=== PATIENT | male | born 1945 | race Caucasian/White ===

== ENCOUNTER 2017-02-21 13:30 | Inpatient (IN) | payer BC, MEDICARE ==
--- NOTE | 2017-02-21 15:09 | ED PDOC ---
HPI: Abdomen Chief Complaint (Provider): Blood in stool History Per: Patient (Pt is a 71 y M with PMHx significant for CAD (s/p angioplasty in 01-30-17), Chronic Panceratitis, HLD, DM, and GERD presents to ED with 3 day history of "tarry" stools. He states that he has had 3 total well formed BM that appeared tarry and denies any BRBR in stool, pain with defecation , hx hemorroids or anal fissures N/V/C, weight loss, CP, SOB, cough, fever, chills. On ROS, he states the he has also been feeling weak for the past 2 days. He has recently began taking Brilinta since his angioplasty procedure. Denies any Nsaid use. ) History/Exam Limitations: no limitations Current Symptoms Are (Timing): Still Present Last Bowel Movement: Today Additional History Per: Patient (Daughter) <Jad Ovalles - Last Filed: 02/21/17 18:03> <Uday Drummond - Last Filed: 02/22/17 13:32> Time Seen by Provider: 02/21/17 14:07 Chief Complaint (Nursing): GI Problem Past Medical History Reviewed: Historical Data, Nursing Documentation, Vital Signs - Medical History PMH: Hyperlipidemia, Pancreatitis Denies: Diverticulitis (Denies Hemorrhoids or Anal Fissures), Gastritis - Surgical History Other surgeries: Angioplasty (01-30-17) - 4 stents placed - Family History Family History: States: No Known Family Hx Other Family History: 4 maternal aunts with breast cancer - Living Arrangements Living Arrangements: With Family - Social History Current smoker - smoking cessation education provided: No Alcohol: None Drugs: Denies <Jad Ovalles - Last Filed: 02/21/17 18:03> <Uday Drummond Y - Last Filed: 02/22/17 13:32> Vital Signs: Last Vital Signs Temp 98 F 02/22/17 12:38 Pulse 69 02/22/17 12:38 Resp 18 02/22/17 12:38 BP 115/71 02/22/17 12:38 Pulse Ox 98 02/22/17 12:38 - Home Medications Home Medications: Ambulatory Orders Medication Instructions Recorded Aspirin [Ecotrin] 81 mg PO DAILY 02/21/17 Atorvastatin [Lipitor] 20 mg PO HS 02/21/17 Cholecalciferol (Vitamin D3) 400 unit PO BID 02/21/17 [Vitamin D-400] Glimepiride [amaRYL] 4 mg PO BID 02/21/17 Multivitamin [Multi-Vitamin Daily] 1 tab PO DAILY 02/21/17 Sitagliptin Phos/Metformin HCl 1 tab PO BID 02/21/17 [Janumet 50-1,000 mg Tablet] Ticagrelor [Brilinta] 90 mg PO BID 02/21/17 - Allergies Allergies/Adverse Reactions: Allergies Allergy/AdvReac Type Severity Reaction Status Date / Time No Known Allergies Allergy Verified 02/21/17 13:36 Review of Systems ROS Statement: Except As Marked, All Systems Reviewed And Found Negative Constitutional: Positive for: Weakness. Negative for: Fever, Chills, Weight loss ENT: Positive for: Other Cardiovascular: Negative for: Chest Pain, Palpitations, Edema Respiratory: Negative for: Cough, Shortness of Breath, SOB with Exertion, Pleuritic Pain, Wheezing Gastrointestinal: Negative for: Nausea, Vomiting, Abdominal Pain, Diarrhea, Constipation, Hematochezia, Hematemesis, Rectal Pain Genitourinary Male: Negative for: Dysuria, Hematuria Skin: Positive for: Bruising Neurological: Positive for: Weakness. Negative for: Numbness, Confusion, Dizziness <Jad Ovalles - Last Filed: 02/21/17 18:03> Physical Exam - Reviewed Nursing Documentation Reviewed: Yes Vital Signs Reviewed: Yes - Physical Exam Appears: Positive for: Well, Non-toxic, No Acute Distress Head Exam: Positive for: ATRAUMATIC, NORMAL INSPECTION, NORMOCEPHALIC Skin: Positive for: Normal Color. Negative for: Diaphoresis, Pallor Eye Exam: Positive for: EOMI. Negative for: Conjunctival injection Cardiovascular/Chest: Positive for: Regular Rate, Rhythm, Murmur. Negative for : Chest Non Tender, Edema, JVD Respiratory: Positive for: Normal Breath Sounds. Negative for: Crackles, Wheezing Pulses-Dorsalis Pedis (L): 2+ Pulses-Dorsalis Pedis (R): 2+ Pulses-Radial (L): 2+ Pulses-Radial (R): 2+ Gastrointestinal/Abdominal: Positive for: Normal Exam, Bowel Sounds, Soft. Negative for: Tenderness, Organomegaly, Distended Rectal: Positive for: Rectal Tone Is:, Black Stool, Other (Tarry stools noticed in rectal vault; well formed). Negative for: Blood Streaked Stool, Hemorrhoids (2 skin tags), Mass, Tenderness Extremity: Positive for: Capillary Refill (Good). Negative for: Pedal Edema Neurologic/Psych: Positive for: Alert, Oriented <Jad Ovalles - Last Filed: 02/21/17 18:03> - Laboratory Results Result Diagrams: 02/21/17 15:00 02/21/17 15:00 - ECG O2 Sat by Pulse Oximetry: 97 <Jad Ovalles - Last Filed: 02/21/17 18:03> - Laboratory Results Result Diagrams: 02/22/17 06:15 02/22/17 06:15 <Uday Drummond - Last Filed: 02/22/17 13:32> - Progress ED Course And Treament: Pantaprazole 40mg IVP x1 IV NS bolus CBC, CMP, PT Type & Screen Stool Guaic x2 (Jad Ovalles) Medical Decision Making <Jad Ovalles - Last Filed: 02/21/17 18:03> <Uday Drummond - Last Filed: 02/22/17 13:32> Medical Decision Makin yo male with PMHx of CAD (s/p angioplasty on 01-30-17 started on Brilinta), DM, HLD, and Chronic Pancreatitis presents with a 3 day history of Melena and weakness. Plan: Hold Antiplatelet medication Start Pantaprazole Maintain hemodynamics, Monitor H/H, transfuse if needed I spoke with pt's project coordinator rn, Dr. Lau, and foxing cutting machine operator, Dr. Lerma , with regards to pt's symptoms, vitals, labs, and plan to admit. Both MD's agreed that patient met admission criteria and will evaluate pt. Cardio and GI consults place. (Jad Ovalles) MD note- pt seen and evaluated by myself along with resident. pt presented with gi bleed. on brilinta. pt is pt of dr yanez. pt here stable hgb. dr lerma made aware of pt. as well as dr lau pts project coordinator rn. iv protonix initiated in the er. dr yanez aware of pt, will admit to telemetry. pt aware of plan. (Uday Drummond) Disposition - Patient ED Disposition Is Patient to be Admitted: Yes - Disposition Disposition: Transfer of Care Disposition Time: 17:53 - Pt Status Changed To: Hospital Disposition Of: Inpatient - Admit Certification Admit to Inpatient:: After my assessment, the patient will require hospitalization for at least two midnights. This is because of the severity of symptoms shown, intensity of services needed, and/or the medical risk in this patient being treated as an outpatient. - POA Present On Arrival: None <Jad Ovalles - Last Filed: 02/21/17 18:03> - Patient ED Disposition Is Patient to be Admitted: Yes - Disposition Disposition Time: 16:45 - Pt Status Changed To: Hospital Disposition Of: Inpatient - Admit Certification Admit to Inpatient:: After my assessment, the patient will require hospitalization for at least two midnights. This is because of the severity of symptoms shown, intensity of services needed, and/or the medical risk in this patient being treated as an outpatient. <Uday Drummond - Last Filed: 02/22/17 13:32> - Clinical Impression Clinical Impression: Gastritis, GI bleed, Melena, CAD (coronary artery disease) - Disposition Condition: STABLE
[2017-02-21 15:21] LABS: BASO % 0.5 % (0.0-2.0); EOS # 0.1 K/uL (0.0-0.7); EOS % 1.2 % (0.0-4.0); HEMATOCRIT 34.8 % (35.0-51.0); LYMPH % 21.8 % (20.0-40.0); MEAN CELL VOLUME 89.1 fl (80.0-94.0); MEAN CORPUSCULAR HEMOGLOBIN 30.2 pg (27.0-31.0); MEAN CORPUSCULAR HGB CONC 33.9 g/dL (33.0-37.0); MEAN PLATELET VOLUME 11.6 fl (7.2-11.7); MONO # 0.8 K/uL (0.0-0.8); NEUT # 6.1 K/uL (1.8-7.0); NEUT % 67.5 % (50.0-75.0); NRBC % 0.1 % (0.0-0.0); RED CELL DISTRIBUTION WIDTH 13.4 % (11.5-14.5)
[2017-02-21 15:33] LABS: ALB/GLOB RATIO 1.5 (1.0-2.1); ALKALINE PHOSPHATASE 67 U/L (38-126); ALT/SGPT 33 U/L (21-72); AST/SGOT 32 U/L (17-59); BILIRUBIN,TOTAL 0.4 mg/dl (0.2-1.3); BLOOD UREA NITROGEN 11 mg/dl (9-20); CALCIUM 9.6 mg/dL (8.4-10.2); CARBON DIOXIDE 23 mmol/L (22-30); CHLORIDE 98 mmol/L (98-107); GFR AFRICAN-AMERICAN > 60; GLUCOSE,RANDOM 196 mg/dL (75-110); POTASSIUM 4.2 MMOL/L (3.6-5.0); SODIUM 136 mmol/l (132-148); TOTAL PROTEIN 7.4 G/DL (6.3-8.2)
--- NOTE | 2017-02-21 16:39 | RAD ---
HISTORY: go bleed COMPARISON: No prior. FINDINGS: LUNGS: The lungs are well inflated. PLEURA: There is blunting of the left costophrenic angle. No significant right pleural effusion identified, no pneumothorax apparent. CARDIOVASCULAR: Normal. OSSEOUS STRUCTURES: No significant abnormalities. VISUALIZED UPPER ABDOMEN: Normal. OTHER FINDINGS: None. IMPRESSION: No active pulmonary disease. Blunting of the left costophrenic angle may be related to pleural thickening or small pleural effusion.
--- NOTE | 2017-02-21 17:32 | CP.PCM.CON ---
<Phil White - Last Filed: 02/21/17 17:51> History of Present Illness - History of Present Illness History of Present Illness: Initial GI Consult Note Raghav Estrada is a 71M w/ hx of DM, HL, CAD s/p CHELSEA 2 weeks ago on Brillinta, and hx of partial pancreatic resection? who presented to the ER after being referred by her PCP for melena. Pt states that the onet of melena was 3 days ago. He reports daily melonic BM since. Denies any BRBPR, hematemesis, or coffee ground emesis. He denies any lightheadedness or palpitations. He reports that he has been taking all his home meds as prescribed including brillenta and ASA for his recent CHELSEA stent. His last dose of ASA and Brillenta was this morning. Upon arrival his hgb was ~ 11.5 (baseline unknown) and he has been hemodynamically stable upon arrival and since admission. Denies any abd pain, nausea, vomiting or diarrhea. Pt was recently seen in our offin early Jan for complaints of abd pain and GERD like symptoms. An Abd CT was obtained but it revealed an enlarged pancratic head and neck with pancreatic duct dilatation (which may be compensation), but no def mass was identified (as per report). In the interim, pt had a + stress test which resulted in recent CHELSEA stent placement in the LAD (reported x4 small stents as per pt due to anatomy). PMHx: HL, CAD s/p CHELSEA, DM PSHx: lap david, partial pancreatic resection? Social hx: denied any etoh, smoking, or illicit drug use Family hx: Breast Ca in multiple sisters 12-point ROS conducted, neg other than whats states above Past Patient History - Past Social History Alcohol: None Drugs: Denies - CARDIAC Hx Cardiac Disorders: Yes Other/Comment: +CARDIAC STENT - ENDOCRINE/METABOLIC Hx Endocrine Disorders: Yes Hx Diabetes Mellitus Type 2: Yes - GASTROINTESTINAL Hx Diverticulitis: No (Denies Hemorrhoids or Anal Fissures) Hx Gastritis: No Hx Pancreatitis: Yes - PSYCHIATRIC Hx Substance Use: No - SURGICAL HISTORY Hx Surgeries: Yes Other/Comment: "PANCREATIC SURGERY" - ANESTHESIA Hx Anesthesia: Yes Hx Anesthesia Reactions: No Meds Allergies/Adverse Reactions: Allergies Allergy/AdvReac Type Severity Reaction Status Date / Time No Known Allergies Allergy Verified 02/21/17 13:36 Physical Exam - Constitutional Appears: Well, Non-toxic, No Acute Distress - Head Exam Head Exam: ATRAUMATIC, NORMOCEPHALIC - Eye Exam Eye Exam: Normal appearance - ENT Exam ENT Exam: Mucous Membranes Moist, Normal Exam - Respiratory Exam Respiratory Exam: Clear to Auscultation Bilateral, NORMAL BREATHING PATTERN. absent: Rales, Rhonchi, Wheezes - Cardiovascular Exam Cardiovascular Exam: REGULAR RHYTHM, +S1, +S2, Systolic Murmur - GI/Abdominal Exam GI & Abdominal Exam: Normal Bowel Sounds, Soft. absent: Guarding, Organomegaly , Rebound, Rigid - Rectal Exam Additional comments: scant stool on rectal vault, specaled black matter - Extremities Exam Extremities exam: Positive for: normal inspection. Negative for: joint swelling , pedal edema - Neurological Exam Neurological exam: Alert, Oriented x3 - Psychiatric Exam Psychiatric exam: Normal Affect, Normal Mood - Skin Skin Exam: Dry, Intact, Normal Color, Warm Results - Vital Signs Recent Vital Signs: Last Vital Signs Temp 96.0 F L 02/21/17 13:36 Pulse 105 H 02/21/17 13:36 Resp 16 02/21/17 13:36 BP 127/84 02/21/17 13:36 Pulse Ox 97 02/21/17 16:29 - Labs Result Diagrams: 02/21/17 15:00 02/21/17 15:00 Assessment & Plan - Assessment and Plan (Free Text) Assessment: Raghav Estrada is a 71M w/ hx of CAD s/p recent [place] stent, HL, DM who presents with melena. etiology is likely upper based on presentation DDx: PUD, AVM, r/o malig 1. Melena, likely upper GI 2. CAD s/p recent CHELSEA stent x2, on ASA and brillenta 3. Hx of pancreatitis and partial pancreatic resection Plan: -clears for now - NPO after midnight - Will give an additional 80mg IV bolus, then protonix drip - Will likely do EGD on the AM - type and screen blood - monitor hgb q 12 hrs - ensure two large bore IVs are in place - will persue other GI w/u including pancreatic head enlargement as oupt -Keep hgb above 8 D/W Dr. Amaya and agrees with the above <Adeline Amaya MD - Last Filed: 02/21/17 21:11> Meds - Medications Medications: Current Medications Pantoprazole Sodium 40 mg/ (Sodium Chloride) 100 mls @ 20 mls/hr IVPB Q5H FEDERICO PRN Reason: 8 MG/HR Last Admin: 02/21/17 18:53 Dose: 20 mls/hr Results - Vital Signs Recent Vital Signs: Last Vital Signs Temp 98.2 F 02/21/17 20:42 Pulse 79 02/21/17 20:42 Resp 16 02/21/17 20:42 BP 112/61 02/21/17 20:42 Pulse Ox 100 02/21/17 20:15 - Labs Result Diagrams: 02/21/17 15:00 02/21/17 15:00 Labs: Laboratory Results - last 24 hr 02/21/17 16:15 Stool Occult Blood Negative Attending/Attestation - Attestation I have personally seen and examined this patient.: Yes I have fully participated in the care of the patient.: Yes I have reviewed all pertinent clinical information: Yes Notes (Text): 02/21/17 21:06 This is a 71 yr old Spanish M w/ hx of CAD s/p recent DE stent on dual anti platelet, Hyperlipidemia, DM who presents with melena. Seen two weeks ago in my office for dyspepsia like symptoms. Had stress today s/p cardiac cath and 4 cardiac stents placed. Now presenting with three day history of melena likely UGIB. Will start PPI gtt with bolus and plan to scope in am. Hold brilinta for now. Monitor Hb q [address] abdomen done last month also shows lung lesion which is a concern for malignancy mandating lung biopsy. Discussed with Dr Mahoney
[2017-02-21] MEDS: Pantoprazole 40 MG in Sodium Chloride 0.9% 100 ML IVPB SCH ×2 (18:53→23:36)
--- NOTE | 2017-02-21 18:54 | CP.PCM.CON ---
History of Present Illness - History of Present Illness History of Present Illness: I was asked to see patient by Dr. Mahoney. Patient is a 71 year old male with a PMH CAD s/p PCI LAD about one month ago with CHELSEA who presents with melena. The patient had previous unstable angina, and nuclear perfusion stress tet revealed reversible anterior ischemia. Cardiac catheterization revealed 2 sequential high grade stenosis of the LAD whixh were subsequently stented. He was placed on an antiplatelet regimen of ASA and Brilinta. The patient has done well and has been angina free, however recently develop-ed melena. He was admitted for further workup. He is scheduled for endoscopy. Review of Systems - Constitutional Constitutional: absent: As Per HPI, Anorexia, Chills, Daytime Sleepiness, Excessive Sweating, Fatigue, Fever, Frequent Falls, Headache, Increased Appetite , Lethargy, Malaise, Night Sweats, Snoring, Sleep Apnea, Weight Gain, Weight Loss, Weakness, Other - EENT Eyes: absent: As Per HPI, Blind Spots, Blurred Vision, Change in Vision, Decreased Night Vision, Diplopia, Discharge, Dry Eye, Exophthalmos, Floaters, Irritation, Itchy Eyes, Loss of Peripheral Vision, Pain, Photophobia, Requires Corrective Lenses, Sees Flashes, Spots in Vision, Tunnel Vision, Other Visual Disturbances, Loss of Vision, Other Ears: absent: As Per HPI, Decreased Hearing, Ear Discharge, Ear Pain, Tinnitus, Abnormal Hearing, Disequilibrium, Dizziness, Other Nose/Mouth/Throat: absent: As Per HPI, Epistaxis, Nasal Congestion, Nasal Discharge, Nasal Obstruction, Nasal Trauma, Nose Pain, Post Nasal Drip, Sinus Pain, Sinus Pressure, Bleeding Gums, Change in Voice, Dental Pain, Dry Mouth, Dysphagia, Halitosis, Hoarsness, Lip Swelling, Mouth Lesions, Mouth Pain, Odynophagia, Sore Throat, Throat Swelling, Tongue Swelling, Facial Pain, Neck Pain, Neck Mass, Other - Cardiovascular Cardiovascular: absent: As Per HPI, Acrocyanosis, Chest Pain, Chest Pain at Rest , Chest Pain with Activity, Claudication, Diaphoresis, Dyspnea, Dyspnea on Exertion, Edema, Irregular Heart Rhythm, Pain Radiating to Arm/Neck/Jaw, Leg Edema, Leg Ulcers, Lightheadedness, Orthopnea, Palpitations, Paroxysmal Nocturnal Dyspnea, Pedal Edema, Radiating Pain, Rapid Heart Rate, Slow Heart Rate, Syncope, Other - Respiratory Respiratory: absent: As Per HPI, Cough, Dyspnea, Hemoptysis, Dyspnea on Exertion , Wheezing, Snoring, Stridor, Pain on Inspiration, Chest Congestion, Excessive Mucous Production, Change in Mucous Color, Pain with Coughing, Other - Gastrointestinal Gastrointestinal: Melena - Genitourinary Genitourinary: absent: As Per HPI, Change in Urinary Stream, Difficulty Urinating, Dysuria, Flank Pain, Hematuria, Pyuria, Nocturia, Urinary Incontinence, Urinary Frequency, Urinary Hesitance, Urinary Urgency, Voiding Freq/Small Amts, Freq UTI, Hx Renal/Bladder Calculi, Hx /Renal Surgery, Bladder Distension, Other - Musculoskeletal Musculoskeletal: absent: As Per HPI, Abnormal Gait, Arthralgias, Atrophy, Back Pain, Deformity, Joint Swelling, Limited Range of Motion, Loss of Height, Muscle Cramps, Muscle Weakness, Myalgias, Neck Pain, Numbness, Radiating Pain into Limb, Stiffness, Tingling, Other - Integumentary Integumentary: absent: As Per HPI, Acne, Alopecia, Bleeding Lesions, Change in Hair, Change in Nails, Change in Pigmentation, Changing Lesions, Dry Skin, Erythema, Furuncle, Hirsutism, Lesions, New Lesions, Non-Healing Lesions, Photosensitivity, Pruritus, Rash, Skin Pain, Skin Ulcer, Sores, Striae, Swelling , Unusual Bruising, Wounds, Jaundice, Other - Neurological Neurological: absent: As Per HPI, Abnormal Gait, Abnormal Hearing, Abnormal Movements, Abnormal Speech, Behavioral Changes, Burning Sensations, Confusion, Convulsions, Disequilibrium, Dizziness, Numbness, Focal Weakness, Frequent Falls , Headaches, Lack of Coordination, Loss of Vision, Memory Loss, Paresthesias, Radicular Pain, Restless Legs, Sensory Deficit, Syncope, Tingling, Tremor, Vertigo, Weakness, Other Visual Disturbances, Other - Psychiatric Psychiatric: absent: As Per HPI, Abnormal Sleep Pattern, Anhedonia, Anxiety, Auditory Hallucinations, Behavioral Changes, Change in Appetite, Change in Libido, Confusion, Depression, Difficulty Concentrating, Hallucinations, Homicidal Ideation, Hopelessness, Irritability, Memory Loss, Mood Swings, Panic Attacks, Paranoia, Suicidal Ideation, Visual Hallucinations, Tactile Hallucinations, Other - Endocrine Endocrine: absent: As Per HPI, Change in Body Appearance, Change in Libido, Cold Intolorance, Deepening of Voice, Excessive Sweating, Fatigue, Flushing, Heat Intolorance, Increase in Ring/Shoe/Hat Size, Palpitations, Polydipsia, Polyphagia, Polyuria, Other - Hematologic/Lymphatic Hematologic: absent: As Per HPI, Easy Bleeding, Easy Bruising, Lymphadenopathy, Other Past Patient History - Past Social History Alcohol: None Drugs: Denies - CARDIAC Hx Cardiac Disorders: Yes Other/Comment: +CARDIAC STENT - ENDOCRINE/METABOLIC Hx Endocrine Disorders: Yes Hx Diabetes Mellitus Type 2: Yes - GASTROINTESTINAL Hx Diverticulitis: No (Denies Hemorrhoids or Anal Fissures) Hx Gastritis: No Hx Pancreatitis: Yes - PSYCHIATRIC Hx Substance Use: No - SURGICAL HISTORY Hx Surgeries: Yes Other/Comment: "PANCREATIC SURGERY" - ANESTHESIA Hx Anesthesia: Yes Hx Anesthesia Reactions: No Meds Allergies/Adverse Reactions: Allergies Allergy/AdvReac Type Severity Reaction Status Date / Time No Known Allergies Allergy Verified 02/21/17 13:36 - Medications Medications: Current Medications Pantoprazole Sodium 40 mg/ (Sodium Chloride) 100 mls @ 20 mls/hr IVPB Q5H [place]ER[place] PRN Reason: 8 MG/HR Physical Exam - Constitutional Appears: Non-toxic - Head Exam Head Exam: NORMAL INSPECTION - Eye Exam Eye Exam: Normal appearance - ENT Exam ENT Exam: Mucous Membranes Moist - Neck Exam Neck exam: Positive for: Normal Inspection - Respiratory Exam Respiratory Exam: NORMAL BREATHING PATTERN - Cardiovascular Exam Cardiovascular Exam: REGULAR RHYTHM - GI/Abdominal Exam GI & Abdominal Exam: Normal Bowel Sounds - Rectal Exam Rectal Exam: Deferred - Extremities Exam Extremities exam: Positive for: normal inspection - Back Exam Back exam: NORMAL INSPECTION - Neurological Exam Neurological exam: Alert, Oriented x3 - Psychiatric Exam Psychiatric exam: Normal Affect - Skin Skin Exam: Normal Color Results - Vital Signs Recent Vital Signs: Last Vital Signs Temp 96.0 F L 02/21/17 13:36 Pulse 105 H 02/21/17 13:36 Resp 16 02/21/17 13:36 BP 127/84 02/21/17 13:36 Pulse Ox 97 02/21/17 18:04 - Labs Result Diagrams: 02/22/17 06:15 02/22/17 06:15 Labs: Laboratory Results - last 24 hr 02/21/17 16:15 Stool Occult Blood Negative - EKG Data EKG Interpreted by: Myself EKG shows normal: Sinus rhythm Assessment & Plan (1) Melena Assessment and Plan: will need endoscopy. This is a low risk procedure. There is no cardiovascular contraindication to the planned procedure. Status: Acute (2) CAD (coronary artery disease) Assessment and Plan: s/p PCI with CHELSEA stent palcement. was maintained on Brilinta and ASA. ideally would like to continue as patient is at increased risk of stent thrombosis. If needs to be held for prolonged period due to procedures, will consider IV Integrelin. Status: Acute (3) HTN (hypertension) Assessment and Plan: controlled Status: Acute (4) Hypercholesterolemia Assessment and Plan: statin therapy Status: Acute
[2017-02-21] MEDS ORDERED: Patient's Own Med (Sitagliptin Phos/Metformin Hcl [Janumet 50-1,000 Mg Tablet] 1 TAB) PO SCH (22:00)
[2017-02-22] MEDS: GlipiZIDE 10 mg SR Tab PO SCH ×3 (02:09→17:35)
[2017-02-22] MEDS: Pantoprazole 40 MG in Sodium Chloride 0.9% 100 ML IVPB SCH ×2 (05:59→09:12)
[2017-02-22 06:56] LABS: HEMATOCRIT 33.6 % (35.0-51.0); MEAN CELL VOLUME 89.1 fl (80.0-94.0); MEAN CORPUSCULAR HGB CONC 33.7 g/dL (33.0-37.0); RED CELL DISTRIBUTION WIDTH 13.6 % (11.5-14.5); WHITE BLOOD COUNT 9.5 K/uL (4.8-10.8)
[2017-02-22] MEDS: Insulin Regular 100 units/ml SC SCH ×2 (07:00→12:20)
[2017-02-22 07:09] LABS: ALB/GLOB RATIO 1.4 (1.0-2.1); ALKALINE PHOSPHATASE 66 U/L (38-126); ALT/SGPT 39 U/L (21-72); AST/SGOT 30 U/L (17-59); BILIRUBIN,TOTAL 0.4 mg/dl (0.2-1.3); BLOOD UREA NITROGEN 11 mg/dl (9-20); CALCIUM 9.2 mg/dL (8.4-10.2); CARBON DIOXIDE 25 mmol/L (22-30); CHLORIDE 104 mmol/L (98-107); GFR AFRICAN-AMERICAN > 60; GLUCOSE,RANDOM 140 mg/dL (75-110); SODIUM 137 mmol/l (132-148); TOTAL PROTEIN 6.7 G/DL (6.3-8.2)
[2017-02-22] MEDS: Multivitamin With Minerals Tab PO SCH (09:00)
[2017-02-22] MEDS: Cholecalciferol 400 Intl Units Tab PO SCH ×2 (09:00→17:37)
[2017-02-22] MEDS ORDERED: Patient's Own Med (Multivitamin [Multi-Vitamin Daily] 1 TAB) PO SCH (09:00)
--- NOTE | 2017-02-22 09:11 | CP.PCM.HP ---
History of Present Illness - History of Present Illness History of Present Illness: Patient is a 71 year old male with a PMH of DM, CAD s/p PCI LAD about one month ago with CHELSEA who presents with melena. Patient has been on ASA and Brilinta. Patient previously seen by GI due to complaints of abdominal pain, had CT of abdomen/pelvis that revealed the body and tail of pancreas are completely fatty replaced with compensatory prominence of the head and neck pancreatic parenchyma with dilation of pancreatic duct. No longer having dark stools. No complaints today s/p EGD. PMHx: CAD s/p CHELSEA, DM, HLD Medications: reviewed Allergies: NKDA social hx: denies smoking, etoh and illicit drug use. Surgical hx: cardiac cath w/ stent placement Present on Admission - Present on Admission Any Indicators Present on Admission: No Past Patient History - Past Medical History & Family History Past Medical History?: Yes - Past Social History Alcohol: None Drugs: Denies - CARDIAC Hx Cardiac Disorders: Yes Other/Comment: +CARDIAC STENT - PULMONARY Hx Respiratory Disorders: No - NEUROLOGICAL Hx Neurological Disorder: No - HEENT Hx HEENT Problems: No - RENAL Hx Chronic Kidney Disease: No - ENDOCRINE/METABOLIC Hx Endocrine Disorders: Yes Hx Diabetes Mellitus Type 2: Yes - HEMATOLOGICAL/ONCOLOGICAL Hx Blood Disorders: No Hx AIDS: No Hx Human Immunodeficiency Virus (HIV): No - INTEGUMENTARY Hx Dermatological Problems: No - MUSCULOSKELETAL/RHEUMATOLOGICAL Hx Musculoskeletal Disorders: No Hx Falls: No - GASTROINTESTINAL Hx Diverticulitis: No (Denies Hemorrhoids or Anal Fissures) Hx Gastritis: No Hx Pancreatitis: Yes - GENITOURINARY/GYNECOLOGICAL Hx Genitourinary Disorders: No - PSYCHIATRIC Hx Substance Use: No - SURGICAL HISTORY Hx Surgeries: Yes Other/Comment: "PANCREATIC SURGERY" - ANESTHESIA Hx Anesthesia: Yes Hx Anesthesia Reactions: No Meds Allergies/Adverse Reactions: Allergies Allergy/AdvReac Type Severity Reaction Status Date / Time No Known Allergies Allergy Verified 02/21/17 13:36 Physical Exam - Constitutional Appears: No Acute Distress - Head Exam Head Exam: ATRAUMATIC, NORMAL INSPECTION, NORMOCEPHALIC - Eye Exam Eye Exam: EOMI, Normal appearance, PERRL - ENT Exam ENT Exam: Mucous Membranes Moist, Normal Exam - Respiratory Exam Respiratory Exam: Clear to Auscultation Bilateral, NORMAL BREATHING PATTERN - Cardiovascular Exam Cardiovascular Exam: REGULAR RHYTHM - GI/Abdominal Exam GI & Abdominal Exam: Normal Bowel Sounds, Soft. absent: Tenderness - Neurological Exam Neurological exam: Alert, CN II-XII Intact, Normal Gait, Oriented x3 - Psychiatric Exam Psychiatric exam: Normal Affect, Normal Mood - Skin Skin Exam: Dry, Intact, Normal Color, Warm Results - Vital Signs Recent Vital Signs: Last Vital Signs Temp 97.8 F 02/22/17 08:00 Pulse 75 02/22/17 08:00 Resp 20 02/22/17 08:00 BP 110/60 02/22/17 08:00 Pulse Ox 96 02/22/17 08:00 - Labs Result Diagrams: 02/22/17 06:15 02/22/17 06:15 Labs: Laboratory Results - last 24 hr 02/21/17 02/21/17 02/22/17 16:15 22:10 05:18 WBC RBC Hgb Hct MCV MCH MCHC RDW Plt Count Sodium Potassium Chloride Carbon Dioxide Anion Gap BUN Creatinine Est GFR ( Amer) Est GFR (Non-Af Amer) POC Glucose (mg/dL) 84 136 H Random Glucose Calcium Total Bilirubin AST ALT Alkaline Phosphatase Total Protein Albumin Globulin Albumin/Globulin Ratio Stool Occult Blood Negative 02/22/17 02/22/17 06:15 06:15 WBC 9.5 RBC 3.78 L Hgb 11.4 L Hct 33.6 L MCV 89.1 MCH 30.0 MCHC 33.7 RDW 13.6 Plt Count 181 Sodium 137 Potassium 4.0 Chloride 104 Carbon Dioxide 25 Anion Gap 13 BUN 11 Creatinine 0.7 L Est GFR ( Amer) > 60 Est GFR (Non-Af Amer) > 60 POC Glucose (mg/dL) Random Glucose 140 H Calcium 9.2 Total Bilirubin 0.4 AST 30 ALT 39 Alkaline Phosphatase 66 Total Protein 6.7 Albumin 3.9 Globulin 2.8 Albumin/Globulin Ratio 1.4 Stool Occult Blood Assessment & Plan - Assessment and Plan (Free Text) Assessment: 71 year old male admitted for melena s/p upper endoscopy found to have erosions of esophagus and greater curvature of stomach. Suspicious for Barretts esophagus. Anemia is likely 2' to acute blood loss. FOBT negative. Patient will need biopsy of lung nodule, however he is on ASA/Brilinta. Patient is hemodynamically stable. Consults appreciated: Cardio: Dr. Lau, GI: Dr. Amaya. # Melena # Anemia # Lung nodule # CAD # NIIDM # DVT prophylaxis P: -Protonix 40mg PO BID -Patient needs CT guided lung lung biopsy, on ASA/Brilinta for recent placement of CHELSEA -Will need to hold brilinta and start integrilin for potential bx. Will d/w Dr. Lau -Will coordinate with GI and IR for biopsies. -Glucose control with ISS and home medications. -scds for dvt prophylaxis Case d/w Dr. Mahoney
[2017-02-22] MEDS ORDERED: Lactated Ringer's 500 ML IV ONE (09:14)
[2017-02-22] MEDS ORDERED: EPINEPHrine 1 mg/ml (1:1000) Inj ONE (09:40)
[2017-02-22] MEDS ORDERED: Midazolam 2 MG/2 ML VIAL ONE (09:42)
[2017-02-22] MEDS ORDERED: Propofol 10 mg/ml Inj (20 ML) ONE (09:42)
--- NOTE | 2017-02-22 12:47 | CP.PCM.PCO ---
Assessment & Plan - Assessment and Plan (Free Text) Assessment: pt. scheduled for CT guided lung bx in am 12;30 with ok to held asa/ brillanta today as per
[2017-02-22] MEDS: Insulin Lispro (humaLOG) 100 Units/ml Inj SC SCH ×2 (17:20→22:14)
[2017-02-22] MEDS: Pantoprazole 40 mg EC Tab PO SCH (17:44)
[2017-02-23 06:46] LABS: HEMATOCRIT 34.2 % (35.0-51.0); MEAN CELL VOLUME 89.8 fl (80.0-94.0); MEAN CORPUSCULAR HEMOGLOBIN 30.2 pg (27.0-31.0); MEAN CORPUSCULAR HGB CONC 33.6 g/dL (33.0-37.0); RED CELL DISTRIBUTION WIDTH 13.5 % (11.5-14.5); WHITE BLOOD COUNT 10.6 K/uL (4.8-10.8)
[2017-02-23 06:55] LABS: ALB/GLOB RATIO 1.4 (1.0-2.1); ALKALINE PHOSPHATASE 65 U/L (38-126); ALT/SGPT 33 U/L (21-72); AST/SGOT 23 U/L (17-59); BILIRUBIN,TOTAL 0.3 mg/dl (0.2-1.3); BLOOD UREA NITROGEN 14 mg/dl (9-20); CALCIUM 8.9 mg/dL (8.4-10.2); CARBON DIOXIDE 26 mmol/L (22-30); CHLORIDE 100 mmol/L (98-107); GFR AFRICAN-AMERICAN > 60; GLUCOSE,RANDOM 176 mg/dL (75-110); POTASSIUM 4.1 MMOL/L (3.6-5.0); SODIUM 136 mmol/l (132-148); TOTAL PROTEIN 6.6 G/DL (6.3-8.2)
--- NOTE | 2017-02-23 08:21 | CP.PCM.PN ---
Addendum entered and electronically signed by Phil White DO 02/23/17 10:18: will also do a colonoscopy on sunday with EGD to rule out lower source of bleeding -start golytyl; on sunday -start clears on sunday -NPO after midnigh on sunday Original Note: <Phil White - Last Filed: 02/23/17 08:23> Subjective - Date & Time of Evaluation Date of Evaluation: 02/23/17 Time of Evaluation: 07:00 - Subjective Subjective: PGY4 GI Follow-up Pt seen and examined bedside No new complaints For CT-guided lung biopsy today Denies any Abd pain, nausea, and vomiting Denies any additional melena, but states that his BM yesterday was dark toerated diet yesterday NPO today ROS: 10 point ROS conducted, neg other than whats stated above Objective - Vital Signs/Intake and Output Vital Signs (last 24 hours): Temp Pulse Resp BP Pulse Ox 98.2 F 77 20 119/74 98 02/23/17 05:32 02/23/17 05:32 02/23/17 05:32 02/23/17 05:32 02/23/17 05:32 - Medications Medications: Current Medications Aspirin (Ecotrin) 81 mg PO DAILY [facility] Last Admin: 02/22/17 09:00 Dose: Not Given Atorvastatin Calcium (Lipitor) 20 mg PO HS [facility] Last Admin: 02/22/17 21:22 Dose: 20 mg Glipizide (Glucotrol Xl) 10 mg PO BRKDIN [facility] Last Admin: 02/22/17 17:35 Dose: 10 mg Insulin Human Lispro (Humalog) 0 units SC [facility] PRN Reason: Protocol Last Admin: 02/22/17 22:14 Dose: Not Given Metformin HCl (Glucophage) 1,000 mg PO BID [facility] Last Admin: 02/22/17 17:36 Dose: 1,000 mg Multivitamins/Minerals (Therapeutic-M Tab) 1 tab PO DAILY [facility] Last Admin: 02/22/17 09:00 Dose: Not Given Pantoprazole Sodium (Protonix Ec Tab) 40 mg PO BID [facility] Last Admin: 02/22/17 17:44 Dose: 40 mg Sitagliptin Phosphate (Januvia) 100 mg PO DAILY [facility] Last Admin: 02/22/17 13:39 Dose: 100 mg Ticagrelor (Brilinta) 90 mg PO BID [facility] Last Admin: 02/22/17 09:00 Dose: Not Given Vitamin D (Vitamin D 400 Intl Units Tab) 400 intlu PO BID [facility] Last Admin: 02/22/17 17:37 Dose: 400 intlu - Labs Labs: 02/23/17 05:50 02/23/17 05:50 PT 12.8 Seconds (9.8-13.1) 02/21/17 15:00 INR 1.2 (0.9-1.2) 02/21/17 15:00 - Constitutional Appears: Non-toxic, No Acute Distress - Head Exam Head Exam: ATRAUMATIC, NORMOCEPHALIC - Eye Exam Eye Exam: Normal appearance - ENT Exam ENT Exam: Mucous Membranes Moist, Normal Exam - Neck Exam Neck Exam: Normal Inspection - Cardiovascular Exam Cardiovascular Exam: REGULAR RHYTHM, +S1, +S2 - GI/Abdominal Exam GI & Abdominal Exam: Soft, Normal Bowel Sounds. absent: Firm, Rigid, Tenderness - Neurological Exam Neurological Exam: Alert, Awake, Oriented x3 - Psychiatric Exam Psychiatric exam: Normal Affect, Normal Mood - Skin Skin Exam: Dry, Intact, Normal Color, Warm Assessment and Plan - Assessment and Plan (Free Text) Assessment: Raghav Estrada is a 71M w/ hx of CAD s/p recent DE stent, HL, DM who presents with melena. etiology is likely upper from esophageal and gastric ulcer, but cannot rule out distal site DDx: PUD, AVM, r/o malig 1. Melena, resolved 2. Esophageal and gastric ulcer 3. Suspicious for barretts esophagus 3. CAD s/p recent CHELSEA stent x2, on ASA, currently on integrillin 4. Hx of pancreatitis and partial pancreatic resection Plan: -continue PPI -Keep hgb above 8 - If pt is here till sunday will do another EGD for biopsies - Agree with integrillin - okay to continue ASA - NPO after midnight on Sunday will D/W Dr. Amaya <Adeline Amaya MD - Last Filed: 02/23/17 10:32> Objective - Vital Signs/Intake and Output Vital Signs (last 24 hours): Temp Pulse Resp BP Pulse Ox 98.1 F 80 18 112/69 96 02/23/17 09:08 02/23/17 09:08 02/23/17 09:08 02/23/17 09:08 02/23/17 09:08 - Medications Medications: Current Medications Aspirin (Ecotrin) 81 mg PO DAILY [facility] Last Admin: 02/22/17 09:00 Dose: Not Given Atorvastatin Calcium (Lipitor) 20 mg PO HS [facility] Last Admin: 02/22/17 21:22 Dose: 20 mg Glipizide (Glucotrol Xl) 10 mg PO BRKDIN [facility] Last Admin: 02/23/17 09:19 Dose: Not Given Insulin Human Lispro (Humalog) 0 units SC [facility] PRN Reason: Protocol Last Admin: 02/23/17 09:19 Dose: Not Given Metformin HCl (Glucophage) 1,000 mg PO BID [facility] Last Admin: 02/23/17 09:18 Dose: Not Given Multivitamins/Minerals (Therapeutic-M Tab) 1 tab PO DAILY [facility] Last Admin: 02/23/17 09:21 Dose: Not Given Pantoprazole Sodium (Protonix Ec Tab) 40 mg PO BID [facility] Last Admin: 02/23/17 09:21 Dose: Not Given Polyethylene Glycol/Electrolytes (Golytely) 4,000 ml PO ONCE ONE Stop: 02/25/17 12:01 Sitagliptin Phosphate (Januvia) 100 mg PO DAILY [facility] Last Admin: 02/23/17 09:20 Dose: Not Given Ticagrelor (Brilinta) 90 mg PO BID [facility] Last Admin: 02/22/17 09:00 Dose: Not Given Vitamin D (Vitamin D 400 Intl Units Tab) 400 intlu PO BID [facility] Last Admin: 02/23/17 09:21 Dose: Not Given - Labs Labs: 02/23/17 05:50 02/23/17 05:50 PT 12.8 Seconds (9.8-13.1) 02/21/17 15:00 INR 1.2 (0.9-1.2) 02/21/17 15:00 Attending/Attestation - Attestation I have personally seen and examined this patient.: Yes I have fully participated in the care of the patient.: Yes I have reviewed all pertinent clinical information, including history, physical exam and plan: Yes Notes (Text): 02/23/17 10:23 Patient seen with GI fellow on rounds this am. This is a 71 yr old M w/ hx of CAD s/p recent DE stent on dual anti platelet, HL, DM who presents with melena s /p EGD showing superficial esophageal and gastric ulcers and esophageal salmon patch. Biopsy not done as patient received brillinta on day of scope. Scheduled for lung biopsy today with IR for lung lesion. If dual anti platelet being held till Sunday will do repeat EGD with biopsy and colonoscopy. Please start bowel prep on Sunday and npo past midnight. Continue PPI daily orally. Regular cardiac diet. Can continue ASA. Discussed with the team
--- NOTE | 2017-02-23 08:59 | CP.PCM.PN ---
Subjective - Date & Time of Evaluation Date of Evaluation: 02/23/17 Time of Evaluation: 08:57 - Subjective Subjective: No acute overnight events. Patient seen and examined with attending. No complaints offered. Has not had BM. NPO status maintained. Patient is scheduled for CT guided lung biopsy today. Denies any headaches, Objective - Vital Signs/Intake and Output Vital Signs (last 24 hours): Temp Pulse Resp BP Pulse Ox 98.2 F 77 20 119/74 98 02/23/17 05:32 02/23/17 05:32 02/23/17 05:32 02/23/17 05:32 02/23/17 05:32 - Medications Medications: Current Medications Aspirin (Ecotrin) 81 mg PO DAILY [facility] Last Admin: 02/22/17 09:00 Dose: Not Given Atorvastatin Calcium (Lipitor) 20 mg PO HS [facility] Last Admin: 02/22/17 21:22 Dose: 20 mg Glipizide (Glucotrol Xl) 10 mg PO BRKDIN [facility] Last Admin: 02/22/17 17:35 Dose: 10 mg Insulin Human Lispro (Humalog) 0 units SC [facility] PRN Reason: Protocol Last Admin: 02/22/17 22:14 Dose: Not Given Metformin HCl (Glucophage) 1,000 mg PO BID [facility] Last Admin: 02/22/17 17:36 Dose: 1,000 mg Multivitamins/Minerals (Therapeutic-M Tab) 1 tab PO DAILY [facility] Last Admin: 02/22/17 09:00 Dose: Not Given Pantoprazole Sodium (Protonix Ec Tab) 40 mg PO BID [facility] Last Admin: 02/22/17 17:44 Dose: 40 mg Sitagliptin Phosphate (Januvia) 100 mg PO DAILY [facility] Last Admin: 02/22/17 13:39 Dose: 100 mg Ticagrelor (Brilinta) 90 mg PO BID [facility] Last Admin: 02/22/17 09:00 Dose: Not Given Vitamin D (Vitamin D 400 Intl Units Tab) 400 intlu PO BID [facility] Last Admin: 02/22/17 17:37 Dose: 400 intlu - Labs Labs: 02/23/17 05:50 02/23/17 05:50 PT 12.8 Seconds (9.8-13.1) 02/21/17 15:00 INR 1.2 (0.9-1.2) 02/21/17 15:00 - Constitutional Appears: No Acute Distress - Head Exam Head Exam: ATRAUMATIC, NORMAL INSPECTION, NORMOCEPHALIC - Eye Exam Eye Exam: Normal appearance - Respiratory Exam Respiratory Exam: NORMAL BREATHING PATTERN - Cardiovascular Exam Cardiovascular Exam: REGULAR RHYTHM, +S1, +S2 - GI/Abdominal Exam GI & Abdominal Exam: Soft, Normal Bowel Sounds. absent: Distended, Guarding, Tenderness - Neurological Exam Neurological Exam: Alert, Awake, CN II-XII Intact, Oriented x3 - Psychiatric Exam Psychiatric exam: Normal Affect, Normal Mood - Skin Skin Exam: Dry, Intact, Normal Color, Warm Assessment and Plan - Assessment and Plan (Free Text) Assessment: 71 year old male admitted for melena s/p upper endoscopy found to have erosions of esophagus and greater curvature of stomach. Suspicious for Barretts esophagus. Melena has resolved. He is scheduled for CT guided lung biopsy today. Potential biopsy via EGD on Sunday. Will need to be off Brilinta until then. Integrilin to be started 02/24/17 and discontinued 02/25/17 in PM. Consults appreciated: Cardio: Dr. Lau, GI: Dr. Amaya. # Melena - resolved # Anemia # Lung nodule # CAD # NIIDM # Esophageal/gastric non bleeding ulcers # DVT prophylaxis P: -Lung biopsy today -Protonix 40mg PO BID -Glucose control with ISS and home medications. -scds for dvt prophylaxis -Integrilin to start 02/24/17 -Hold brilinta, ASA ok to continue as per GI
[2017-02-23] MEDS: Insulin Lispro (humaLOG) 100 Units/ml Inj SC SCH ×4 (09:19→21:59)
[2017-02-23] MEDS: GlipiZIDE 10 mg SR Tab PO SCH ×2 (09:19→17:21)
[2017-02-23] MEDS: Multivitamin With Minerals Tab PO SCH ×2 (09:21→17:22)
[2017-02-23] MEDS: Pantoprazole 40 mg EC Tab PO SCH ×2 (09:21→17:21)
[2017-02-23] MEDS: Cholecalciferol 400 Intl Units Tab PO SCH ×2 (09:21→17:22)
--- NOTE | 2017-02-23 11:36 | CARD ---
APPROVED REPORT EKG Measurement Heart [id number] <Conclusion> Normal sinus rhythm Normal ECG
[2017-02-23] MEDS ORDERED: Lidocaine 1% Inj (20ml) ONE (12:27)
[2017-02-23] MEDS ORDERED: Etomidate 20 mg/10ml Inj IV ONE (12:45)
[2017-02-23] MEDS ORDERED: Midazolam 2 MG/2 ML VIAL ONE (12:46)
--- NOTE | 2017-02-23 13:37 | PCM.SURG1 ---
Surgeon's Initial Post Op Note - Surgeon's Notes Surgeon: Juan Pablo Patiño MD Admin Prog Coord: NONE Type of Anesthesia: IV Sedation Pre-Operative Diagnosis: Lung mass Operative Findings: CT showed s 2.4 cm left lung mass. Post-Operative Diagnosis: LUng mass Operation Performed: CT guided biopsy Specimen/Specimens Removed: 20 gauge core x 2 Estimated Blood Loss: EBL {In ML}: 0 Blood Products Given: N/A Drains Used: No Drains Post-Op Condition: Fair Date of Surgery/Procedure: 02/23/17 Time of Surgery/Procedure: 13:30
--- NOTE | 2017-02-23 13:47 | CT ---
PROCEDURE: Date of procedure: 02/23/2017 Procedure: 1. CT-guided lung mass biopsy, CPT [address] Guidance for biopsy, [address] Medications: The patient was sedated by anesthesiologist along with physiologic monitoring. 6cc Lidocaine 1% Radiation: 500.75 mGy-cm HISTORY: Left upper lobe lung nodule TECHNIQUE: Following informed consent and procedure time out, the patient was placed prone on the CT table and noncontrast CT scan was performed. Noncontrast CT scan confirmed the presence of a 2.4 cm left lung mass. A skin localizer was placed on the patient's LEFT flank and a repeat CT scan was performed. The skin was marked, prepped, and draped in the usual sterile fashion. After the skin was anesthetized with lidocaine and the patient sedated by the anesthesiologist, a 20 gauge core needle was advanced percutaneously under direct CT guidance into the mass. Upon confirmation of needle position, Two 20-gauge core specimens were obtained and sent for routine pathology. The needle was removed and a xeroform dressing was applied. A post biopsy CT scan showed no pneumothorax. IMPRESSION: CT guided core biopsy left lung nodule.
--- NOTE | 2017-02-23 17:50 | RAD ---
HISTORY: Status post left lung mass biopsy. COMPARISON: 02/21/2017 FINDINGS: LUNGS: No active pulmonary disease. PLEURA: No significant pleural effusion identified, no pneumothorax apparent. CARDIOVASCULAR: Normal. OSSEOUS STRUCTURES: No significant abnormalities. VISUALIZED UPPER ABDOMEN: Normal. OTHER FINDINGS: None. IMPRESSION: No active disease.
--- NOTE | 2017-02-23 17:58 | CP.PCM.PN ---
Subjective - Date & Time of Evaluation Date of Evaluation: 02/23/17 Time of Evaluation: 17:50 - Subjective Subjective: patient has no chest pain or dyspnea. s/p lung biopsy. Awaiting colonic biopsy on Sunday. Objective - Vital Signs/Intake and Output Vital Signs (last 24 hours): Temp Pulse Resp BP Pulse Ox 97.2 F L 94 H 18 118/70 99 02/23/17 15:30 02/23/17 15:30 02/23/17 15:30 02/23/17 15:30 02/23/17 15:30 - Medications Medications: Current Medications Aspirin (Ecotrin) 81 mg PO DAILY [facility] Last Admin: 02/22/17 09:00 Dose: Not Given Atorvastatin Calcium (Lipitor) 20 mg PO HS [facility] Last Admin: 02/22/17 21:22 Dose: 20 mg Glipizide (Glucotrol Xl) 10 mg PO BRKDIN [facility] Last Admin: 02/23/17 17:21 Dose: 10 mg Insulin Human Lispro (Humalog) [address] [facility] PRN Reason: Protocol Last Admin: 02/23/17 17:18 Dose: Not Given Metformin HCl (Glucophage) 1,000 mg PO BID [facility] Last Admin: 02/23/17 17:20 Dose: 1,000 mg Multivitamins/Minerals (Therapeutic-M Tab) 1 tab PO DAILY [facility] Last Admin: 02/23/17 17:22 Dose: 1 tab Pantoprazole Sodium (Protonix Ec Tab) 40 mg PO BID [facility] Last Admin: 02/23/17 17:21 Dose: 40 mg Polyethylene Glycol/Electrolytes (Golytely) 4,000 ml PO ONCE ONE Stop: 02/25/17 12:01 Sitagliptin Phosphate (Januvia) 100 mg PO DAILY [facility] Last Admin: 02/23/17 09:20 Dose: Not Given Ticagrelor (Brilinta) 90 mg PO BID [facility] Last Admin: 02/22/17 09:00 Dose: Not Given Vitamin D (Vitamin D 400 Intl Units Tab) 400 intlu PO BID [facility] Last Admin: 02/23/17 17:22 Dose: 400 intlu - Labs Labs: 02/23/17 05:50 02/23/17 05:50 PT 12.8 Seconds (9.8-13.1) 02/21/17 15:00 INR 1.2 (0.9-1.2) 02/21/17 15:00 - Constitutional Appears: Non-toxic - Head Exam Head Exam: NORMAL INSPECTION - Eye Exam Eye Exam: Normal appearance - ENT Exam ENT Exam: Mucous Membranes Moist - Neck Exam Neck Exam: Full ROM - Respiratory Exam Respiratory Exam: Decreased Breath Sounds - Cardiovascular Exam Cardiovascular Exam: REGULAR RHYTHM - GI/Abdominal Exam GI & Abdominal Exam: Normal Bowel Sounds - Rectal Exam Rectal Exam: Deferred - Extremities Exam Extremities Exam: absent: Pedal Edema - Back Exam Back Exam: NORMAL INSPECTION - Neurological Exam Neurological Exam: Alert - Psychiatric Exam Psychiatric exam: Normal Affect - Skin Skin Exam: Normal Color Assessment and Plan (1) Melena Assessment & Plan: for GI procedure with biopsy on Sunday. Off Brilinta. I will start Integrelin tomorrow for antiplatelet theerapy and will d/c 18 hrs prior to Biopsy. Status: Acute (2) CAD (coronary artery disease) Assessment & Plan: start Integrelin tomorrow Status: Acute (3) HTN (hypertension) Assessment & Plan: controlled Status: Acute (4) Hypercholesterolemia Status: Acute
[2017-02-24 04:48] LABS: HEMATOCRIT 34.6 % (35.0-51.0); MEAN CELL VOLUME 89.8 fl (80.0-94.0); MEAN CORPUSCULAR HEMOGLOBIN 29.8 pg (27.0-31.0); MEAN CORPUSCULAR HGB CONC 33.2 g/dL (33.0-37.0); RED CELL DISTRIBUTION WIDTH 13.7 % (11.5-14.5)
[2017-02-24] MEDS: Insulin Lispro (humaLOG) 100 Units/ml Inj SC SCH ×4 (06:35→21:29)
[2017-02-24] MEDS: GlipiZIDE 10 mg SR Tab PO SCH ×2 (08:54→17:39)
[2017-02-24] MEDS: Pantoprazole 40 mg EC Tab PO SCH ×2 (08:55→17:45)
[2017-02-24] MEDS: Cholecalciferol 400 Intl Units Tab PO SCH ×2 (08:56→17:45)
[2017-02-24] MEDS: Multivitamin With Minerals Tab PO SCH (08:56)
--- NOTE | 2017-02-24 10:22 | CP.PCM.PN ---
Subjective - Date & Time of Evaluation Date of Evaluation: 02/24/17 Time of Evaluation: 10:22 - Subjective Subjective: Patient feels a lot better Has no episode of rectal bleed. Has no abd pain. Objective - Vital Signs/Intake and Output Vital Signs (last 24 hours): Temp Pulse Resp BP Pulse Ox 98.8 F 80 16 106/70 96 02/24/17 08:10 02/24/17 09:00 02/24/17 08:10 02/24/17 08:10 02/24/17 08:10 - Medications Medications: Current Medications Aspirin (Ecotrin) 81 mg PO DAILY [facility] Last Admin: 02/22/17 09:00 Dose: Not Given Atorvastatin Calcium (Lipitor) 20 mg PO HS [facility] Last Admin: 02/23/17 21:15 Dose: 20 mg Glipizide (Glucotrol Xl) 10 mg PO BRKDIN [facility] Last Admin: 02/24/17 08:54 Dose: 10 mg Eptifibatide (Integrilin) 75 mg in 100 mls @ 8.491 mls/hr IV .[id number] [facility]; 2 MCG/KG/MIN PRN Reason: Protocol Insulin Human Lispro (Humalog) 0 units SC [facility] PRN Reason: Protocol Last Admin: 02/24/17 06:35 Dose: Not Given Metformin HCl (Glucophage) 1,000 mg PO BID [facility] Last Admin: 02/24/17 08:54 Dose: 1,000 mg Multivitamins/Minerals (Therapeutic-M Tab) 1 tab PO DAILY [facility] Last Admin: 02/24/17 08:56 Dose: 1 tab Pantoprazole Sodium (Protonix Ec Tab) 40 mg PO BID [facility] Last Admin: 02/24/17 08:55 Dose: 40 mg Polyethylene Glycol/Electrolytes (Golytely) 4,000 ml PO ONCE ONE Stop: 02/25/17 12:01 Sitagliptin Phosphate (Januvia) 100 mg PO DAILY [facility] Last Admin: 02/24/17 08:55 Dose: 100 mg Ticagrelor (Brilinta) 90 mg PO BID [facility] Last Admin: 02/22/17 09:00 Dose: Not Given Vitamin D (Vitamin D 400 Intl Units Tab) 400 intlu PO BID [facility] Last Admin: 02/24/17 08:56 Dose: 400 intlu - Labs Labs: 02/24/17 04:10 02/23/17 05:50 PT 12.8 Seconds (9.8-13.1) 02/21/17 15:00 INR 1.2 (0.9-1.2) 02/21/17 15:00
[2017-02-24 10:54] VITALS: BMI 19.2
[2017-02-24] MEDS: Eptifibatide 0.75 mg/ml 75 MG/100 ML BOTTLE IV SCH ×3 (12:10→22:47)
[2017-02-25] MEDS: Insulin Lispro (humaLOG) 100 Units/ml Inj SC SCH ×4 (06:35→21:36)
[2017-02-25] MEDS: GlipiZIDE 10 mg SR Tab PO SCH ×2 (09:36→16:53)
--- NOTE | 2017-02-25 09:36 | CP.PCM.PN ---
Subjective - Date & Time of Evaluation Date of Evaluation: 02/25/17 Time of Evaluation: 09:20 - Subjective Subjective: patient has no chest pain. 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 He is tolerating Integrelin Objective - Vital Signs/Intake and Output Vital Signs (last 24 hours): Temp Pulse Resp BP Pulse Ox 97.8 F 77 20 104/66 97 02/25/17 08:00 02/25/17 08:00 02/25/17 08:00 02/25/17 08:00 02/25/17 08:00 - Medications Medications: Current Medications Aspirin (Ecotrin) 81 mg PO DAILY [facility] Last Admin: 02/22/17 09:00 Dose: Not Given Atorvastatin Calcium (Lipitor) 20 mg PO HS [facility] Last Admin: 02/24/17 21:43 Dose: 20 mg Glipizide (Glucotrol Xl) 10 mg PO BRKDIN [facility] Last Admin: 02/24/17 17:39 Dose: Not Given Eptifibatide (Integrilin) 75 mg in 100 mls @ 8.491 mls/hr IV .[id number] [place]; 2 MCG/KG/MIN PRN Reason: Protocol Last Admin: 02/24/17 22:47 Dose: Not Given Insulin Human Lispro (Humalog) 0 units SC ACHS [facility] PRN Reason: Protocol Last Admin: 02/25/17 06:35 Dose: 1 units Metformin HCl (Glucophage) 1,000 mg PO BID [facility] Last Admin: 02/24/17 17:39 Dose: Not Given Multivitamins/Minerals (Therapeutic-M Tab) 1 tab PO DAILY [facility] Last Admin: 02/24/17 08:56 Dose: 1 tab Pantoprazole Sodium (Protonix Ec Tab) 40 mg PO BID [facility] Last Admin: 02/24/17 17:45 Dose: 40 mg Polyethylene Glycol/Electrolytes (Golytely) 4,000 ml PO ONCE ONE Stop: 02/25/17 12:01 Sitagliptin Phosphate (Januvia) 100 mg PO DAILY [facility] Last Admin: 02/24/17 08:55 Dose: 100 mg Ticagrelor (Brilinta) 90 mg PO BID [facility] Last Admin: 02/22/17 09:00 Dose: Not Given Vitamin D (Vitamin D 400 Intl Units Tab) 400 intlu PO BID [facility] Last Admin: 02/24/17 17:45 Dose: 400 intlu - Labs Labs: 02/24/17 04:10 02/23/17 05:50 PT 12.8 Seconds (9.8-13.1) 02/21/17 15:00 INR 1.2 (0.9-1.2) 02/21/17 15:00 - Constitutional Appears: Non-toxic - Head Exam Head Exam: NORMAL INSPECTION - Eye Exam Eye Exam: Normal appearance - ENT Exam ENT Exam: Mucous Membranes Moist - Neck Exam Neck Exam: Full ROM - Respiratory Exam Respiratory Exam: NORMAL BREATHING PATTERN - Cardiovascular Exam Cardiovascular Exam: REGULAR RHYTHM - GI/Abdominal Exam GI & Abdominal Exam: Normal Bowel Sounds - Rectal Exam Rectal Exam: Deferred - Extremities Exam Extremities Exam: Pedal Edema - Back Exam Back Exam: NORMAL INSPECTION - Neurological Exam Neurological Exam: Alert - Psychiatric Exam Psychiatric exam: Normal Affect - Skin Skin Exam: Normal Color Assessment and Plan (1) Melena Assessment & Plan: awaiting colonoscopy. I will stop Integrelin 18 hrs prior to the procedure. Status: Acute (2) CAD (coronary artery disease) Assessment & Plan: off Brilinta for colonoscopy. stop Integrelin 18 hrs prior to the procedure. Status: Acute (3) HTN (hypertension) Status: Acute (4) Hypercholesterolemia Status: Acute
[2017-02-25] MEDS: Multivitamin With Minerals Tab PO SCH (09:37)
[2017-02-25] MEDS: Cholecalciferol 400 Intl Units Tab PO SCH ×2 (09:37→16:53)
[2017-02-25] MEDS: Pantoprazole 40 mg EC Tab PO SCH ×2 (09:37→16:53)
[2017-02-25] MEDS: Eptifibatide 0.75 mg/ml 75 MG/100 ML BOTTLE IV SCH ×2 (10:35→23:06)
[2017-02-25] MEDS ORDERED: Peg-Electrolyte Oral Soln 4L (Golytely) PO ONE (12:00)
--- NOTE | 2017-02-25 12:41 | PN ---
DATE: 02/25/2017 SUBJECTIVE: The patient is seen and examined. Interim events noted. The patient remains in the progressive care unit, on telemetry monitoring. The patient feels okay. Denies any specific complaints. No chest pain. No shortness of breath. Not able to sleep comfortably. Stool color is also changed to brown from dark tarry. PHYSICAL EXAMINATION: GENERAL: The patient is in no acute distress. VITAL SIGNS: Stable. No orthostatic changes. HEART: S1 and S2, normal and regular. LUNGS: Good bilateral air exchange. ABDOMEN: Soft and nontender. EXTREMITIES: No edema. No calf swelling. No tenderness. No acute ischemia. CENTRAL NERVOUS SYSTEM: Essentially unchanged. DIAGNOSTIC DATA: Available diagnostic data reviewed. Telemetry monitoring does not reveal significant arrhythmia. IMPRESSION: Overall, the patient's general medical condition is stable. No complications. Clinically appreciable from the . Chest x-ray from was clear. CAT scan did not reveal any pneumothorax. PLAN: As ordered. Rod Mahoney MD
[2017-02-26 06:31] LABS: HEMATOCRIT 35.6 % (35.0-51.0); MEAN CELL VOLUME 88.9 fl (80.0-94.0); MEAN CORPUSCULAR HEMOGLOBIN 30.2 pg (27.0-31.0); RED CELL DISTRIBUTION WIDTH 13.6 % (11.5-14.5); WHITE BLOOD COUNT 8.9 K/uL (4.8-10.8)
[2017-02-26] MEDS: Insulin Lispro (humaLOG) 100 Units/ml Inj SC SCH ×2 (06:35→12:51)
[2017-02-26 06:44] LABS: ALB/GLOB RATIO 1.4 (1.0-2.1); ALKALINE PHOSPHATASE 85 U/L (38-126); ALT/SGPT 27 U/L (21-72); AST/SGOT 23 U/L (17-59); BILIRUBIN,TOTAL 0.6 mg/dl (0.2-1.3); BLOOD UREA NITROGEN 8 mg/dl (9-20); CALCIUM 9.3 mg/dL (8.4-10.2); CARBON DIOXIDE 28 mmol/L (22-30); CHLORIDE 101 mmol/L (98-107); GFR AFRICAN-AMERICAN > 60; GLUCOSE,RANDOM 130 mg/dL (75-110); POTASSIUM 4.2 MMOL/L (3.6-5.0); SODIUM 138 mmol/l (132-148); TOTAL PROTEIN 7.1 G/DL (6.3-8.2)
[2017-02-26] MEDS: GlipiZIDE 10 mg SR Tab PO SCH (08:45)
[2017-02-26] MEDS: Pantoprazole 40 mg EC Tab PO SCH (08:46)
[2017-02-26] MEDS: Multivitamin With Minerals Tab PO SCH (08:46)
[2017-02-26] MEDS: Cholecalciferol 400 Intl Units Tab PO SCH (08:46)
--- NOTE | 2017-02-26 08:58 | PN ---
DATE: 02/26/2017 MEDICAL FOLLOWUP PROGRESS NOTE SUBJECTIVE: The patient is seen and examined. Interim events noted. Consults noted and appreciated. Cardiology followup and intervention noted and appreciated. The patient remains in progressive care unit, on telemetry monitoring. The patient feels better. No chest pain. No shortness of breath. No blood in the stool. PHYSICAL EXAMINATION: GENERAL: The patient is in no acute distress. VITAL SIGNS: Stable. HEART: S1 and S2, normal and regular. LUNGS: Good bilateral air exchange. ABDOMEN: Soft and nontender. EXTREMITIES: No edema. No calf swelling. No tenderness. No acute ischemia. CENTRAL NERVOUS SYSTEM: Essentially unchanged. DIAGNOSTIC DATA: Available diagnostic data reviewed. Telemetry monitoring does not reveal significant arrhythmia. IMPRESSION: Overall, the patient's general medical condition is stable. The patient needs for possible endoscopy today. PLAN: As ordered. Case and plan discussed with the patient. Rod Mahoney MD
[2017-02-26] MEDS ORDERED: Propofol 10 mg/ml Inj (20 ML) ONE (11:56)
[2017-02-26] MEDS: Eptifibatide 0.75 mg/ml 75 MG/100 ML BOTTLE IV SCH (11:56)
[2017-02-26] MEDS ORDERED: Lactated Ringer's 500 ML IV ONE (11:56)
[2017-02-26] MEDS ORDERED: Midazolam 2 MG/2 ML VIAL ONE (11:56)
[2017-02-26] MEDS ORDERED: EPINEPHrine 1 mg/ml (1:1000) Inj ONE (12:07)
[2017-02-26] MEDS ORDERED: ePHEDrine 50 mg/ml Inj ONE (12:17)
[2017-02-26 14:05] VITALS: BP 113/70; PULSE 70; RESP 18; TEMP 97.5; O2SAT 97
--- NOTE | 2017-02-26 14:28 | CP.PCM.PCO ---
Assessment & Plan - Assessment and Plan (Free Text) Assessment: patient s/p endoscopy/ colonoscopy Results discussed with and as per and , pt. may resume Asa Brillanta today pt. will f/u with end of this week ' f/u endo / CT lung mass bx results Rx for ppi sent to pharmacy patient cleared for discharge to home today by f/u with and outpatient
== END 2017-02-26 15:50 | disposition home or self-care (01) | DRG 378 ==
LOC: H.ER 13:30 → H.ERHOLD 15:46 → H.TEL 21:24
PROVIDERS: ADMIT Internal Medicine; ATTEND Internal Medicine
PROC: 0DJ08ZZ Inspection of Upper Intestinal Tract, Via Natural or Artificial Opening Endoscopic (ICD-10-PCS; 2017-02-22)
PROC: 0BBL3ZX Excision of Left Lung, Percutaneous Approach, Diagnostic (ICD-10-PCS; 2017-02-23)
PROC: BB28ZZZ Computerized Tomography (CT Scan) of Left Tracheobronchial Tree (ICD-10-PCS; 2017-02-23)
PROC: 0DB68ZX Excision of Stomach, Via Natural or Artificial Opening Endoscopic, Diagnostic (ICD-10-PCS; 2017-02-26)
PROC: 0DJD8ZZ Inspection of Lower Intestinal Tract, Via Natural or Artificial Opening Endoscopic (ICD-10-PCS; principal; 2017-02-26 11:30)
PROC: 0DB58ZX Excision of Esophagus, Via Natural or Artificial Opening Endoscopic, Diagnostic (ICD-10-PCS; 2017-02-26 11:30)
DX: K92.1 Melena (principal); D62 Acute posthemorrhagic anemia; E11.9 Type 2 diabetes mellitus without complications; K86.1 Other chronic pancreatitis; R91.1 Solitary pulmonary nodule; E78.00 Pure hypercholesterolemia, unspecified; E78.5 Hyperlipidemia, unspecified; I10 Essential (primary) hypertension; I25.10 Atherosclerotic heart disease of native coronary artery without angina pectoris; Z80.3 Family history of malignant neoplasm of breast; K29.70 Gastritis, unspecified, without bleeding; Z79.82 Long term (current) use of aspirin; Z79.899 Other long term (current) drug therapy; Z95.5 Presence of coronary angioplasty implant and graft; K64.1 Second degree hemorrhoids; K44.9 Diaphragmatic hernia without obstruction or gangrene; K25.9 Gastric ulcer, unspecified as acute or chronic, without hemorrhage or perforation; K22.9 Disease of esophagus, unspecified; K21.0 Gastro-esophageal reflux disease with esophagitis; K29.50 Unspecified chronic gastritis without bleeding